=== PATIENT | female | born 1995 | race Caucasian/White ===

== ENCOUNTER → 2022-04-03 00:24 | Observation (INO) ==
[2022-04-02 23:18] LABS: Basophils # 0.1 K/mcL (0.0-0.2); Basophils % 0.4 %; Eosinophils # 0.2 K/mcL (0.0-0.6); Eosinophils % 1.2 %; Hematocrit 34.5 % (35.3-44.9); Hemoglobin 11.8 g/dL (11.5-15.4); Immature Granulocytes % 1.4 % (0-4); Lymphocytes # 2.2 K/mcL (0.6-4.6); Lymphocytes % 14.2 %; Mean Corpuscular HGB Conc 34.2 g/dL (31.6-35.5); Mean Corpuscular Hemoglobin 32.3 pg (28.0-33.3); Mean Corpuscular Volume 94.5 fL (83.0-100.0); Mean Platelet Volume 10.1 fL (9.4-12.4); Monocytes # 0.9 K/mcL (0.0-1.3); Monocytes % 6.1 %; Neutrophils # 11.9 K/mcL (1.6-8.9); Platelet Count 314 K/mcL (140-400); Red Blood Count 3.65 M/mcL (3.82-4.97); Red Cell Distribution Width 13.1 % (11.5-14.5); Segmented Neutrophils % 76.7 %; White Blood Count 15.5 K/mcL (4.3-11.1)
[2022-04-02 23:26] LABS: Bacteria,Urine Few per hpf (None-Few); Bilirubin,Urine Negative (Negative); Blood,Urine Negative (Negative); Clarity,Urine Turbid (Clear); Color,Urine Colorless (Yellow); Glucose,Urine (UA) Normal (Normal); Ketones,Urine Negative (Negative); Leukocyte Esterase,Urine Small (Negative); Mucus,Urine Few per lpf (None-Few); Nitrite,Urine Negative (Negative); Protein,Urine Negative (Neg-Trace); Specific Gravity,Urine 1.005 (1.010-1.025); Squamous Epithelial Cell,Urine Many per hpf (None-Few); Urobilinogen,Urine Normal (Normal)
[2022-04-02 23:32] LABS: Protein/Creatinine Ratio,Urine 0.38 mg/mg (0.00-0.20)
[2022-04-02 23:42] LABS: Alanine Aminotransferase 21 Units/L (7-52); Aspartate Amino Transferase 15 Units/L (13-39); BUN/Creatinine Ratio 18 (6-26); Blood Urea Nitrogen 9 mg/dL (6-20); Lactate Dehydrogenase 113 Units/L (140-271); Uric Acid 2.7 mg/dL (2.3-7.6); eGFR For African Americans > 60 (> 60); eGFR For Non-African Americans > 60 (> 60)
[~2022-04-03 00:24] MED LIST: Ringers Solution, Lactated 1,000 ML IVC SCH; Ringers Solution, Lactated 1,000 ML ONE
[2022-04-03 00:53] LABS: Candida DNA Not Detected (Not Detect); Gardnerella DNA DETECTED (Not Detect); Trichomonas DNA Not Detected (Not Detect)
== END | disposition home or self-care (01) ==
LOC: 1NENULAB
PROVIDERS: ADMIT Obstetrics & Gynecology; ATTEND Obstetrics & Gynecology

== ENCOUNTER → 2022-05-16 18:46 | Observation (INO) | END | disposition home or self-care (01) | LOC: 1NENULAB | PROVIDERS: ADMIT Registered Nurse; ATTEND Registered Nurse ==

== ENCOUNTER 2022-06-05 22:18 | Inpatient (IN) ==
[2022-06-05] MEDS ORDERED: Ondansetron 4 MG/2 ML VIAL IVP PRN (23:25)
[2022-06-05] MEDS ORDERED: Famotidine 20 MG/2 ML VIAL IVP PRN (23:25)
[2022-06-05] MEDS ORDERED: *HR* Nalbuphine 10 MG/ML AMPUL IV PRN (23:25)
[2022-06-05] MEDS ORDERED: Naloxone 0.4 MG/ML INJ IVP PRN (23:25)
[2022-06-05] MEDS ORDERED: Azithromycin 500 MG in 0.9 % Sodium Chloride 250 ML IVPB PRN (23:25)
[2022-06-05] MEDS ORDERED: Metoclopramide 10 MG/2 ML VIAL IVP PRN (23:25)
[2022-06-06] MEDS: miSOPROStoL 25 MCG TABLET PO PRN ×2 (00:14→09:20)
[2022-06-06 00:31] LABS: Lymphocytes % 14.3 %; Mean Corpuscular Hemoglobin 31.6 pg (28.0-33.3); Mean Platelet Volume 10.4 fL (9.4-12.4); Platelet Count 342 K/mcL (140-400)
[2022-06-06 00:33] LABS: Basophils # 0.1 K/mcL (0.0-0.2); Basophils % 0.4 %; Eosinophils # 0.1 K/mcL (0.0-0.6); Eosinophils % 1.1 %; Hematocrit 35.6 % (35.3-44.9); Immature Granulocytes % 0.9 % (0-4); Lymphocytes # 1.8 K/mcL (0.6-4.6); Mean Corpuscular HGB Conc 33.7 g/dL (31.6-35.5); Mean Corpuscular Volume 93.7 fL (83.0-100.0); Monocytes # 0.6 K/mcL (0.0-1.3); Monocytes % 4.9 %; Red Cell Distribution Width 13.3 % (11.5-14.5); Segmented Neutrophils % 78.4 %; White Blood Count 12.8 K/mcL (4.3-11.1)
[2022-06-06] MEDS: Oxytocin 30 UNIT/503 ML BAG IVC SCH (06:23)
[2022-06-06] MEDS ORDERED: EPHEDrine 50 MG/ML VIAL IVP PRN (07:58)
[2022-06-06] MEDS: Ringers Solution, Lactated 1,000 ML IVC SCH ×3 (09:18→21:51)
[2022-06-06] MEDS: Epidural Premix (fent/bupiv) 110 ML EP SCH ×2 (09:19→21:51)
[2022-06-06] MEDS ORDERED: miSOPROStoL 25 MCG TABLET PO PRN (13:19)
[2022-06-06] MEDS ORDERED: hydrOXYzine pamoate 25 MG CAPSULE PO PRN (20:26)
[2022-06-07] MEDS: Oxytocin 30 UNIT/503 ML BAG IVC SCH (09:38)
[2022-06-07] MEDS: Epidural Premix (fent/bupiv) 110 ML EP SCH ×2 (09:39→15:32)
[2022-06-07] MEDS ORDERED: *HR* FentaNYL (PF) 100 MCG/2 ML VIAL ONE (22:10)
[2022-06-07] MEDS ORDERED: Sodium Bicarbonate 50 MEQ/50 ML VIAL ONE (22:10)
[2022-06-07] MEDS ORDERED: Lidocaine/EPI 1:200k 2% PF 20 ML VIAL ONE (22:10)
[2022-06-07] MEDS ORDERED: Ondansetron 4 MG/2 ML VIAL ONE (22:11)
[2022-06-07] MEDS ORDERED: ceFAZolin 2,000 MG in 0.9 % Sodium Chloride 100 ML IVPB ONE (22:15)
[2022-06-07] MEDS ORDERED: *HR* Oxytocin 10 UNIT/ML VIAL ONE (22:27)
[2022-06-07] MEDS ORDERED: Ringers Solution, Lactated 1,000 ML ONE (22:29)
[2022-06-07] MEDS ORDERED: *HR* Morphine Sulfate/PF 10 MG/10 ML AMPUL ONE (22:30)
[2022-06-07] MEDS ORDERED: dexmedeTOMIDine in 0.9 % NaCL 80 MCG/20 ML MLS ONE (22:56)
[2022-06-07] MEDS ORDERED: Acetaminophen IV 1,000 MG/100 ML BAG IVPB ONE (23:26)
[2022-06-07] MEDS ORDERED: Ketorolac 30 MG/ML VIAL ONE (23:36)
[2022-06-08] MEDS ORDERED: Acetaminophen IV 1,000 MG/100 ML BAG IVPB PRN
[2022-06-08] MEDS ORDERED: *HR* Meperidine 25 MG/ML SYRINGE IVP PRN
[2022-06-08] MEDS ORDERED: *HR* HYDROmorphone PF 0.5 MG/0.5 ML SYRINGE IVP PRN
[2022-06-08] MEDS ORDERED: Promethazine 6.25 MG in Water for inj. (sterile) 20 ML IVPB PRN
[2022-06-08] MEDS: Oxytocin 30 UNIT/503 ML BAG IVC SCH (02:23)
[2022-06-08] MEDS ORDERED: Ondansetron 4 MG/2 ML VIAL IVP PRN (02:58)
[2022-06-08] MEDS ORDERED: Simethicone 80 MG TAB.CHEW PO PRN (02:58)
[2022-06-08] MEDS ORDERED: Metoclopramide 10 MG/2 ML VIAL IVP PRN (02:58)
[2022-06-08] MEDS ORDERED: Oxytocin 30 UNIT/503 ML BAG IVC SCH (02:58)
[2022-06-08] MEDS ORDERED: Ringers Solution, Lactated 1,000 ML IVC SCH (02:58)
[2022-06-08] MEDS ORDERED: ceFAZolin 2,000 MG in 0.9 % Sodium Chloride 100 ML IVPB SCH ×2 (03:00→06:00)
[2022-06-08] MEDS: Ibuprofen 600 MG TABLET PO SCH ×4 (03:19→21:49)
[2022-06-08] MEDS: Acetaminophen 325 MG TABLET PO SCH ×4 (03:19→21:49)
[2022-06-08 05:05] LABS: Basophils % 0.2 %; Eosinophils # 0.1 K/mcL (0.0-0.6); Eosinophils % 0.3 %; Hematocrit 33.1 % (35.3-44.9); Hemoglobin 11.1 g/dL (11.5-15.4); Immature Granulocytes % 0.5 % (0-4); Lymphocytes % 3.9 %; Mean Corpuscular HGB Conc 33.5 g/dL (31.6-35.5); Mean Corpuscular Hemoglobin 31.7 pg (28.0-33.3); Mean Corpuscular Volume 94.6 fL (83.0-100.0); Mean Platelet Volume 10.4 fL (9.4-12.4); Monocytes # 0.5 K/mcL (0.0-1.3); Monocytes % 2.3 %; Neutrophils # 20.2 K/mcL (1.6-8.9); Platelet Count 297 K/mcL (140-400); Red Cell Distribution Width 13.2 % (11.5-14.5); Segmented Neutrophils % 92.8 %
[2022-06-08 05:06] LABS: Lymphocytes # 0.9 K/mcL (0.6-4.6); White Blood Count 21.8 K/mcL (4.3-11.1)
[2022-06-08] MEDS: *HR* OxyCODONE Immed Rel 5 MG TABLET PO PRN ×2 (09:13→17:38)
[2022-06-08] MEDS: Prenatal Vit/FA 1 EACH TABLET PO SCH (09:14)
[2022-06-08] MEDS ORDERED: Lanolin 7 G OINT...G. TP PRN (11:08)
[2022-06-08] MEDS: CeFAZolin 2,000 MG/120 ML BAG IVPB SCH ×2 (14:19→21:48)
[2022-06-08] MEDS ORDERED: *HR* Nalbuphine 10 MG/ML AMPUL IV PRN (17:10)
[2022-06-09] MEDS: *HR* OxyCODONE Immed Rel 5 MG TABLET PO PRN (00:04)
[2022-06-09 07:53] VITALS: BP 127/76; PULSE 95; TEMP 98.1; O2SAT 97
[2022-06-09] MEDS: Acetaminophen 325 MG TABLET PO SCH (09:15)
[2022-06-09] MEDS: Prenatal Vit/FA 1 EACH TABLET PO SCH (09:15)
[2022-06-09] MEDS: Ibuprofen 600 MG TABLET PO SCH (09:15)
== END 2022-06-09 14:31 | disposition home or self-care (01) | DRG 787 ==
LOC: 1NENULAB 22:18 → 1NENUOBS 06-08 02:10
PROVIDERS: ADMIT Obstetrics & Gynecology; ATTEND Obstetrics & Gynecology